=== PATIENT | female | born 1930 | race African-American/Black ===

== ENCOUNTER 2019-11-17 09:58 | Emergency (ER) | payer MEDICARE ==
[~2019-11-17] VITALS: Ht 162.6 cm; Wt 55.0 kg
[~2019-11-17 09:58] MED LIST: ATOR20TA; CLON0.2T12; CLOP75TA4
[2019-11-17] MEDS ORDERED: SODIUM CHLORIDE 0.9% 250 ML IV ONE (10:30)
[2019-11-17] MEDS ORDERED: DILTIAZEM HCL 5MG/ML 5ML VIAL IV ONE (10:30)
[2019-11-17] MEDS ORDERED: CLOPIDOGREL 75MG TABLET PO ONE (11:15)
[2019-11-17] MEDS ORDERED: DILTIAZEM HCL 120MG CAPSULE CD 24HR PO ONE ×2 (11:15→13:00)
[2019-11-17 11:31] LABS: BASOPHILS % 0.8 % (0.0-2.0); EOSINOPHILS % 0.5 % (0.0-5.0); HEMATOCRIT. 40.3 % (36.0-48.0); HEMOGLOBIN. 13.2 g/dL (12.0-16.0); LYMPHOCYTES % 22.9 % (20.0-50.0); MEAN CORPUSCULAR VOLUME 91.6 fL (81.0-99.0); MEAN PLATELET VOLUME 8.7 fl (7.4-10.4); MONOCYTES % 7.5 % (2.0-8.0); NEUTROPHILS % 68.3 % (40.0-76.0); PLATELET 305 x1000/uL (130-400); RED CELL DISTRIBUTION WIDTH 14.4 % (11.6-14.6)
[2019-11-17 11:36] LABS: CHLORIDE 104 mEq/L (98-107)
[2019-11-17 11:49] LABS: CREATINE KINASE 141 IU/L (26-192)
[2019-11-17] MEDS ORDERED: ENOXAPARIN 60MG/0.6ML SYR SUBCUT SCH (16:00)
[2019-11-17 16:11] LABS: CLARITY URINE CLEAR (CLEAR); COLOR URINE YELLOW (YELLOW); KETONES URINE NEGATIVE (NEGATIVE); LEUKOCYTE ESTERASE URINE NEGATIVE (NEGATIVE); NITRITE URINE NEGATIVE (NEGATIVE); OCCULT BLOOD URINE NEGATIVE (NEGATIVE); PH URINE 6.5 (4.5-8.0); PROTEIN URINE 1+ (NEGATIVE); UROBILINOGEN URINE 0.2 E.U./dL (0.2-1.0)
[2019-11-17 17:58] VITALS: BP 170/72
[2019-11-17] MEDS ORDERED: DILTIAZEM HCL 60MG TABLET PO SCH (22:00)
== END 2019-11-17 18:35 | disposition short-term general hospital (02) ==
LOC: ER 10:53 → EDBEDREQSVC 12:16 → EDBEDREQTM 12:16 → EDBEDREQ 12:16 → ER 18:35 → CANBEDREQ 19:45
DX: I48.20 Chronic atrial fibrillation, unspecified (principal); I11.0 Hypertensive heart disease with heart failure; I50.9 Heart failure, unspecified; E11.9 Type 2 diabetes mellitus without complications; I25.10 Atherosclerotic heart disease of native coronary artery without angina pectoris; Z79.899 Other long term (current) drug therapy; Z88.0 Allergy status to penicillin; Z88.5 Allergy status to narcotic agent; Z79.82 Long term (current) use of aspirin; Z88.6 Allergy status to analgesic agent; Z88.8 Allergy status to other drugs, medicaments and biological substances; Z98.890 Other specified postprocedural states; Z90.710 Acquired absence of both cervix and uterus
CPT/HCPCS: 36415; 71045; 80053; 81003; 82550; 83605; 83690; 83880; 84145; 84484; 85025; 85610; 87040; 87086; 93005; 96361; 96374; 99285; J3490; J7030